=== PATIENT | male | born 1965 | race Two or more races ===

== ENCOUNTER 2025-02-03 17:11 | Emergency (ER) | payer OTHER, SELFPAY ==
[2025-02-03 17:17] VITALS: PULSE 115; RESP 18; O2SAT 97; BMI 25.8
[2025-02-03 17:19] VITALS: BP 120/72; PULSE 93; RESP 16; TEMP 37.1; O2SAT 97; BMI 25.8
--- NOTE | 2025-02-03 18:29 | XR_ITS ---
Examination: Knee, right , 3 views Technique: Knee AP, lateral, oblique 3 views Date and time of exam: February 03, 2025 1832 hours INDICATIONS: Right knee pain beginning several months ago. FINDINGS: Mild tricompartment osteoarthritis No fracture or dislocation No foreign body IMPRESSION: Mild tricompartment osteoarthritis
--- NOTE | 2025-02-03 18:29 | EKG_ITS ---
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
--- NOTE | 2025-02-03 18:30 | EDNOTE_ITS ---
ED General RME/HPI General Chief complaint: Fall Stated complaint: FALL Time Seen by Provider: 02/03/25 18:25 Arrival date/time: 02/03/25 17:11 CC: Right knee pain lightheadedness and dizziness HPI patient presents to the ER via EMS who had a syncopal event. Patient currently is awake alert oriented nontoxic-appearing somewhat disheveled and foul-smelling. Active range of motion of all extremities. Denies any localized pain at this time. After extensive interview at 2105, patient admits he was discharged 2 weeks ago from the hospital and [place] for GI bleed. Patient states he is taking 13 medications Related Data Allergies Allergy/AdvReac Type Severity Reaction Status Date / Time No Known Allergies Allergy Verified 11/24/23 01:15 Review of Systems Review of Systems Narrative Review of Systems: GEN: No fever, no chills, no weight loss EYES: No discharge, no visual changes, no pain HEENT: No ear pain, no congestion, no sore throat PULM: No shortness of breath, no cough, no congestion CV: No chest pain, no dyspnea on exertion, no palpitations GI: No nausea, no vomiting, no diarrhea, no pain, no constipation : No frequency, no urgency, no dysuria MUSC/SKEL: No joint pain, no back pain SKIN: No rash PSYCH: No hallucinations, no depression HEME/LYMPH: No easy bleeding or bruising tendencies NEURO: No weakness, no headache Past Medical History Past Medical History CARDIAC: Positive Hypertension and Hypotension; Negative Congestive Heart Failure RESPIRATORY: Negative Chronic Obstructive Pulmonary Disease (COPD) GASTROINTESTINAL: Positive Cirrhosis GENITOURINARY: Negative Renal Disease ENDOCRINE: Negative Diabetes Mellitus Type 1 or Diabetes Mellitus Type 2 Social History SMOKING STATUS: Never smoker ED Exam Narrative Physical exam: [General: Not in any acute distress Head normocephalic HEENT: Within acceptable limits Neck is supple nontender Chest equal chest rise nontender to palpation Respiratory: Clear to auscultation no wheezes crackles or rubs CV: Rate rhythm is regular no murmurs rubs or clicks Abdomen is soft nontender no masses positive bowel sounds all 4 quadrants Rectum: Good rectal tone no fissures no hemorrhoids, vault is empty stool on the rectal wall is brown, very faintly guaiac positive Back: No CVA tenderness no spinous process tenderness from cervical spine thoracic and lumbar spine Skin: Intact no petechiae rash induration ulceration or crepitus Extremities: Knees: Active range of motion passive range of motion with no pops or clicks. No significant edema erythema exudate. Moving all other extremities against resistance cap refill less than 2 seconds neurosensory intact Neuro: Awake alert oriented x3 Glascow coma 15 no focal deficits] Course Course Course Narrative: Patient has stable vital signs, even though the patient's guaiac is mildly positive the patient has been seen by GI 2 weeks ago and has had no significant symptomology and does not require transfusion at this time. Patient will be discharged home to follow-up with his primary care provider. Quality Measures none Orders Category Date Time Status EKG (ED ONLY) *Do not use* NOW Care 02/03/25 18:29 Completed EKG (ED Only) Stat Exams 02/03/25 18:29 Draft XR knee RT 3V Stat Exams 02/03/25 18:29 Completed B-Type Natriuretic Peptide Stat Lab 02/03/25 18:38 Completed CBC Stat Lab 02/03/25 18:38 Completed Comprehensive Metabolic Panel Stat Lab 02/03/25 18:38 Completed Drug Screen,Urine Stat Lab 02/03/25 19:53 Completed LDH (Lactate Dehydrogenase) Stat Lab 02/03/25 18:38 Completed Magnesium Stat Lab 02/03/25 18:38 Completed Partial Thromboplastin Time Stat Lab 02/03/25 18:38 Completed Prothrombin Time with INR Stat Lab 02/03/25 18:38 Completed Troponin I Stat Lab 02/03/25 18:38 Completed Urinalysis Stat Lab 02/03/25 19:53 Completed Insulin Regular Med 02/03/25 21:18 Discontinued 10 unit SC X1 ONE Ketorolac Inj [Toradol Inj] Med 02/03/25 21:04 Discontinued 15 mg IVP X1 ONE Vital Signs Vital signs: Vital Signs Temperature 98.7 F 02/03/25 17:19 Pulse Rate 93 02/03/25 17:19 Respiratory Rate 16 02/03/25 17:19 Blood Pressure 120/72 02/03/25 17:19 Pulse Oximetry (%) 97 02/03/25 17:19 Oxygen Delivery Method Room Air 02/03/25 17:19 Discharge Plan Plan Patient Disposition: HOME (Self Care) Patient condition on transfer: Stable Prescriptions/Referrals Referrals: Farhad Mcrae MD [Physician] - In 1 week No Primary/Family,Physician [Primary Care Provider] - In 1 week Problem List Clinical Impression: Pancytopenia, Weakness, Arthritis of knee Patient/Caregiver Discharge Instructions Education Materials: Anemia, Arthritis: Exercise, ED Weakness (Uncertain Cause) Additional Instructions: Follow-up with your primary care provider and/or the GI specialist from [place] who saw you 2 weeks ago in the hospital. If they are worsening of symptoms return the emergency room medially for further evaluation. 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 Note: Patient has been pancytopenic since December of last year based on laboratory results from multiple visits. Coags within acceptable limits CMP shows a sodium 135 no other significant electrolyte imbalances other than glucose of 404 calcium at 7.8 mag at 1.5 alk phos at 190 LDH at 255 no other transaminitis or T. bili elevation Troponin is negative BNP is negative Urine 4+ glucose 2+ blood negative for leukocyte esterase or bacteria. Medication Administration(s) Medication Administration History Discontinued Medications Insulin Human Regular (Insulin Hum Regular 1 Unit/0.01 Ml (Per Unit)) 10 unit SC X1 ONE Stop: 02/03/25 21:19 Last Admin: 02/03/25 21:34 Dose: 10 unit Documented By: KAYLA Co-signed By: CLIFF Ketorolac Tromethamine (Ketorolac Inj 30 Mg/Ml Vial) 15 mg IVP X1 ONE Stop: 02/03/25 21:05 Last Admin: 02/03/25 21:36 Dose: 15 mg Documented By: KAYLA Diagnosis Differential diagnosis: Pancytopenia GI bleed arthritis Dispositon Disposition: Discharge Home
[2025-02-03 19:00] LABS: Basophils # (Auto) 0.0 Thou/mm3 (0.0-0.2); Basophils % (Auto) 1 % (0-2.5); Eosinophils # (Auto) 0.1 Thou/mm3 (0.0-0.5); Eosinophils % (Auto) 6 % (0-10); Hematocrit 26.9 % (41.0-53.0); Immature Granulocytes Auto 0.00 Thou/mm3 (0.00-0.00); Lymphocytes # (Auto) 0.5 Thou/mm3 (1.0-4.8); Lymphocytes % (Auto) 21 % (10-50); Mean Corpuscular HGB Conc 31.6 g/dl (31.0-37.0); Mean Corpuscular Hemoglobin 23.2 pg (25.0-35.0); Mean Corpuscular Volume 73 fL (80-100); Monocytes # (Auto) 0.4 Thou/mm3 (0.0-0.8); Monocytes % (Auto) 14 % (0-12); Neutrophils # (Auto) 1.5 Thou/mm3 (1.8-7.7); Neutrophils % (Auto) 59 % (37-80); Nucleated Red Blood Cell # 0.00 Thou/mm3 (0.00-0.00); Nucleated Red Blood Cell % 0 /100 WBC (0); RDW Standard Deviation 42.5 fL (35.1-43.9); Red Blood Count 3.67 Miln/mm3 (4.50-5.90); White Blood Count 2.6 Thou/mm3 (3.8-10.6)
[2025-02-03 19:03] LABS: Hemoglobin 8.5 g/dL (13.5-16.0); Platelet Count 73 Thou/mm3 (140-440); Slide Review Platelets confirmed
[2025-02-03 19:06] LABS: INR 1.3 (0.9-1.3); Partial Thromboplastin Time 30.1 Seconds (22.0-36.0); Prothrombin Time 13.5 Seconds (9.0-12.2)
[2025-02-03 20:02] LABS: Collection Type, Urine Clean Catch; Squamous Epithelial Cell,Urine 0 /hpf (0-5); WBC,Urine 0 /hpf (0-5)
[2025-02-03 20:18] LABS: Bilirubin,Urine Negative (Negative); Blood,Urine 2+ (Negative); Clarity,Urine Clear (Clear/Hazy); Color,Urine Lt-Yellow (Lt Yel-Yel); Glucose, Urine 4+ (Negative); Ketones,Urine Negative (Negative); Leukocyte Esterase,Urine Negative (Negative); Nitrite,Urine Negative (Negative); PH,Urine 6.0 (5.0-7.0); Protein,Urine 1+ (Neg - Trace); RBC,Urine 9 /hpf (0-3); Specific Gravity,Urine 1.023 (1.001-1.035); Urobilinogen,Urine Negative mg/dL (0.0-1.0)
[2025-02-03 20:19] LABS: B-Type Natriuretic Peptide 60 pg/mL (0-100)
[2025-02-03 20:35] VITALS: BP 136/67; PULSE 103; RESP 23; TEMP 37.2; O2SAT 97
[2025-02-03 21:03] LABS: Alanine Aminotransferase 14 U/L (10-49); Albumin, Serum 2.6 gm/dL (3.5-5.0); Albumin/Globulin Ratio 1.0 (1.2-2.2); Alkaline Phosphatase 190 U/L (46-116); Anion Gap 11 (7-16); Aspartate Amino Transferase 27 U/L (0-34); BUN/Creatinine Ratio 8 Ratio (12-20); Bilirubin,Total 0.7 mg/dL (0.3-1.2); Blood Urea Nitrogen 10 mg/dL (9-23); Calcium 7.8 mg/dL (8.3-10.6); Calcium (Corrected) 8.9 mg/dL (8.5-10.1); Carbon Dioxide 24.1 mMol/L (20.0-31.0); Chloride 100 mMol/L (98-107); Creatinine (Component) 1.2 mg/dL (0.6-1.3); Estimated Creatinine Clearance 65.7 mL/min (>60); Globulin 2.7 gm/dL (2.3-3.5); LDH (Lactate Dehydrogenase) 255 U/L (120-246); Magnesium 1.5 mg/dL (1.6-2.6); Osmolality,Calculated 286 (275-295); Potassium 3.7 mMol/L (3.4-5.1); Sodium 135 mMol/L (136-145); Total Protein 5.3 gm/dL (5.7-8.2); Troponin I < 0.020 ng/mL (0.0-0.045); eGFR > 60 See Note
[2025-02-03 21:04] LABS: Glucose 404 mg/dL (74-106)
[2025-02-03 21:12] LABS: Amphetamine/Methamp Scrn,U Negative (Negative); Barbiturate Screen,Urine Negative (Negative); Benzodiazepines Screen,Urine Negative (Negative); Benzoylecgonine Screen, Ur Negative (Negative); Fentanyl Screen,Urine Negative (Negative); Opiate Screen,Urine Negative (Negative); THC Screen,Urine Negative (Negative)
[2025-02-03] MEDS: INSULIN HUM REGULAR 1 UNIT/0.01 ML (PER UNIT) 10 UNIT SC (21:34)
[2025-02-03] MEDS: KETOROLAC INJ 30 MG/ML VIAL 15 MG IVP (21:36)
[2025-02-03 22:12] VITALS: BP 147/80; PULSE 98; RESP 18; TEMP 37; O2SAT 99
== END 2025-02-03 22:15 | disposition home or self-care (01) ==
PROVIDERS: Registered Nurse General Practice; Emergency Provider Emergency Medicine
DX: M17.11 Unilateral primary osteoarthritis, right knee (principal); D61.818 Other pancytopenia; R00.0 Tachycardia, unspecified
CPT/HCPCS: 36415; 73562; 80053; 80307; 80320; 81001; 83615; 83735; 83880; 84484; 85025; 85610; 85730; 93005; 96374; 99284; J1815; J1885; G0480